=== PATIENT | female | born 1970 | race Caucasian/White ===

== ENCOUNTER 2017-08-30 11:31 | Emergency (ER) | payer BC, OTHER ==
[2017-08-30 12:05] VITALS: BP 132/86
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
[2017-08-30] MEDS ORDERED: Tenofovir/Emtricitab 200/300 * TAB PO ONE ×2 (13:01→13:02)
[2017-08-30] MEDS ORDERED: Raltegravir* 400 MG TAB PO ONE ×3 (13:02→13:23)
[2017-08-30 19:23] LABS: ABS Basophils 0.1 10^3/ul (0-0.2); ABS Eosinophils 0.2 10^3/ul (0-0.6); ABS Lymphocytes 2.1 10^3/ul (1.0-4.8); ABS Monocytes 0.5 10^3/ul (0-0.8); ABS Neutrophils 6.4 10^3/ul (1.5-7.7); ABS Nucleated RBC 0 10^3/ul; Eosinophil % 2.6 % (0-6); Hematocrit 43 % (35-47); Hemoglobin 14.2 g/dl (12.0-16.0); Lymphocyte % 22.6 % (25-47); Mean Corpuscular HGB Conc 33 g/dl (31-36); Mean Corpuscular Hemoglobin 30 pg (27-31); Mean Corpuscular Volume 89 fL (80-97); Nucleated Red Blood Cells % 0.1; Platelet Count 283 10^3/ul (150-450); Red Blood Count 4.78 10^6/ul (4.0-5.4); Red Cell Distribution Width 14 % (10.5-15); White Blood Count 9.3 10^3/ul (3.5-10.8)
[2017-08-30 19:53] LABS: EGFR Non-African American 95.6 (>60)
== END 2017-08-30 13:41 | disposition home or self-care (01) ==
LOC: UCCORT 11:31
DX: S51.051A Open bite, right elbow, initial encounter (principal); Y04.1XXA Assault by human bite, initial encounter; Y93.9 Activity, unspecified; Y92.219 Unspecified school as the place of occurrence of the external cause; Y99.0 Civilian activity done for income or pay; Z20.6 Contact with and (suspected) exposure to human immunodeficiency virus [HIV]; K21.9 Gastro-esophageal reflux disease without esophagitis; F32.9 Major depressive disorder, single episode, unspecified; I10 Essential (primary) hypertension
CPT/HCPCS: 36415; 80053; 85025; 86703; 86706; 86803; 87340; 99213; G0463

== ENCOUNTER 2017-10-27 09:55 | Emergency (ER) | payer OTHER ==
[2017-10-27 10:23] VITALS: BP 134/74
--- NOTE | 2017-10-27 10:32 | UC ---
Lower Extremity/Ankle HPI - HPI Summary HPI Summary: Left lower ankle and foot pain after fall while walking down. No knee or hip pain. No proximal fibula pain. She is not able to bear wt. - History of Current Complaint Chief Complaint: UCLowerExtremity Stated Complaint: LT FOOT INJ Time Seen by Provider: 10/27/17 10:21 Hx Obtained From: Patient Hx Last Menstrual Period: 09/30/17 Onset/Duration: Sudden Onset, Lasting Hours Severity Initially: Severe Severity Currently: Severe Pain Intensity: 9 Aggravating Factor(s): Standing, Ambulation Alleviating Factor(s): Rest Able to Bear Weight: No - Allergies/Home Medications Allergies/Adverse Reactions: Allergies Allergy/AdvReac Type Severity Reaction Status Date / Time No Known Allergies Allergy Verified 10/27/17 10:22 PMH/Surg Hx/FS Hx/Imm Hx Previously Healthy: No - Surgical History Surgical History: Yes Surgery Procedure, Year, and Place: left rotator cuff,Left knee, b/l breast reduction, D&C x 2 , hernia, Right breast lumpectomy. removal of shauna on left arm that showed signs of skin ca. - Family History Known Family History: Positive: None - Social History Lives: With Family Alcohol Use: Occasionally Substance Use Type: None Smoking Status (MU): Never Smoked Tobacco - Immunization History Most Recent Tetanus Shot: less than 5 years Review of Systems Musculoskeletal: Arthralgia All Other Systems Reviewed And Are Negative: Yes Physical Exam Triage Information Reviewed: Yes Appearance: Well-Appearing, No Pain Distress, Obese Vital Signs: Initial Vital Signs Temp 98.4 F 10/27/17 10:15 Pulse 87 10/27/17 10:15 Resp 17 10/27/17 10:15 BP 134/74 10/27/17 10:15 Pulse Ox 100 10/27/17 10:15 Vital Signs Reviewed: Yes Eyes: Positive: Conjunctiva Clear ENT: Positive: Normal ENT inspection Neck: Positive: Supple. Negative: Nuchal Rigidity Respiratory: Positive: No respiratory distress, No accessory muscle use. Negative: Respiratory distress Cardiovascular: Positive: Brisk Capillary Refill Abdomen Description: Positive: Nontender, No Organomegaly, Soft. Negative: Distended, Guarding Musculoskeletal: Positive: Edema @ - diffuse ankle swelling. THere is lateral malleolar tenderness and 5th metatarsal tenderness. Neurological: Positive: Alert, Muscle Tone Normal. Negative: Fatigued Psychological: Positive: Normal Response To Family, Age Appropriate Behavior Skin Exam: Other - lateral ankle bruising. Diagnostics - Radiology No standard instances Xray Interpretation: No Acute Changes - no fx. Radiology Interpretation Completed By: Radiologist Lower Extremity Course/Dx - Course Course Of Treatment: Ernesto wrap. f/u pcp. if not improved, re x ray. - Differential Dx/Diagnosis Provider Diagnoses: ankle sprain. Discharge - Sign-Out/Discharge Documenting (check all that apply): Patient Departure - Discharge Plan Condition: Good Disposition: HOME Prescriptions: Naproxen Sodium [Naproxen ER 500 MG TAB] 500 mg PO BID PRN #20 tbmp.24hr PRN Reason: Pain Patient Education Materials: Ankle Sprain (ED) Referrals: Selena TENORIO,Ean Jiménez [Primary Care Provider] - - Billing Disposition and Condition Condition: GOOD Disposition: Home
--- NOTE | 2017-10-27 10:52 | RAD ---
HISTORY: traumatic left foot pain. COMPARISONS: None VIEWS: 6, Frontal, lateral, and oblique views of the left ankle and left foot FINDINGS: BONE DENSITY: Normal. BONES: There is no displaced fracture. JOINTS: There is no arthropathy. ALIGNMENT: There is no dislocation. SOFT TISSUES: There is circumferential soft tissue swelling of the ankle. OTHER FINDINGS: None. IMPRESSION: SOFT TISSUE SWELLING. NO ACUTE OSSEOUS INJURY TO THE LEFT ANKLE OR LEFT FOOT. IF SYMPTOMS PERSIST, RECOMMEND REPEAT IMAGING.
== END 2017-10-27 11:19 | disposition home or self-care (01) ==
LOC: UCCORT 09:55
DX: S93.402A Sprain of unspecified ligament of left ankle, initial encounter (principal); M79.672 Pain in left foot; W19.XXXA Unspecified fall, initial encounter; Y93.01 Activity, walking, marching and hiking; Y92.9 Unspecified place or not applicable
CPT/HCPCS: 99213; G0463

== ENCOUNTER 2018-09-01 10:37 | Observation (INO) | payer OTHER ==
[2018-09-01] MEDS ORDERED: Clindamycin 900 MG/D5W BAG(*) 900 MG/50 ML BAG IVPB ONE (12:00)
[2018-09-01] MEDS ORDERED: Scopolamine 1.5 mg* PATCH ONE (12:09)
[2018-09-01] MEDS ORDERED: LORazepam TAB(*) 1 MG ONE (12:10)
[2018-09-01] MEDS ORDERED: Naproxen TAB* 250 MG ONE (12:10)
[2018-09-01] MEDS ORDERED: oxyCODONE SR TAB(*) 10 MG TAB.SR ONE (12:10)
[2018-09-01] MEDS ORDERED: Ondansetron INJ* 2 MG/ML VIAL ONE ×2 (12:10→15:07)
[2018-09-01] MEDS ORDERED: Lidocaine 1% INJ* 10 MG/ML 30 ML SDV ONE (13:00)
[2018-09-01] MEDS ORDERED: nitroGLYCERIN DRIP* 25,000 MCG/250 ML BTL ONE (13:01)
[2018-09-01] MEDS ORDERED: Midazolam* 1 MG/ML 5 ML VIAL (5 MG) ONE (13:05)
[2018-09-01] MEDS ORDERED: fentaNYL* 50 MCG/ML 5 ML VIAL (250 MCG VIAL) ONE (13:05)
[2018-09-01] MEDS ORDERED: Iohexol 350 (CONTRAST) 200 ML MDV IV ONE (13:05)
[2018-09-01] MEDS ORDERED: Heparin(*) 1000 UNIT/ML 10 ML VIAL CATH LAB IV ONE (13:06)
[2018-09-01] MEDS ORDERED: VERAPAMIL 2.5 MG/ML 2 ML VIAL ** 5 mg/2 ml ONE (13:06)
[2018-09-01] MEDS ORDERED: Ketorolac INJ* 30 MG/ML 1 ML VIAL ONE ×2 (13:18→14:56)
[2018-09-01] MEDS ORDERED: PROCHLORPERAZINE INJ 5 MG/ML 2 ML VIAL ONE (15:11)
[2018-09-01] MEDS ORDERED: HYDROmorphone PCA* 20 MG/20 ML PCA.SYRING ONE (15:50)
[2018-09-01] MEDS ORDERED: Albuterol HFA INHALER* 8 gm MDI INH PRN (16:47)
[2018-09-01] MEDS ORDERED: hydrALAZINE IV* 20 MG/ML VIAL IV SLOW PU PRN (17:09)
[2018-09-01] MEDS ORDERED: Naloxone* 0.4 MG/ML 1 ML VIAL IV PUSH PRN (17:59)
[2018-09-01] MEDS ORDERED: NS 0.9% 1000 ML** 1,000 ML IVPB SCH (17:59)
[2018-09-01] MEDS ORDERED: HYDROmorphone PCA* 20 MG/20 ML PCA.SYRING PCA SCH (18:00)
[2018-09-01] MEDS ORDERED: PROCHLORPERAZINE INJ 5 MG/ML 2 ML VIAL IV PRN (18:18)
--- NOTE | 2018-09-01 18:27 | HP ---
CC: JONA Vazquez; Dr. Amador Osman * HISTORY AND PHYSICAL: DATE OF ADMISSION: 09/01/18 PRIMARY CARE PROVIDER: JONA Vazquez INTERVENTIONAL RADIOLOGIST: Dr. Amador Osman. ATTENDING PHYSICIAN: Dr. Rafael Gonsalez * (dictated by Ayah Blake NP). REASON FOR VISIT: Uterine fibroid embolization. HISTORY OF PRESENT ILLNESS: Ms. Myers is a 48-year-old female with past medical history of hypertension, GERD, asthma and depression, who presents to [facility] today for an elective uterine fibroid embolization with Dr. Osman. She is a G3, P2, who has been suffering from menorrhagia for approximately 4 months. Her menstrual cycles have always been somewhat irregular, though recently have become much more erratic. She consulted with Dr. Osman and chose to go forward with a uterine fibroid embolization. The patient is now in the PACU. She is lethargic, but wakes for a short time to speak with me. She reports that she is feeling well. She does complain of 7 /10 abdominal pain, which she describes as cramping. She otherwise has no complaints and is unable to answer any further questions due to lethargy. According to the PACU nurse, the patient has been recovering well. Blood pressures have been slightly elevated, though the patient is noted to have a blood pressure cuff on her right forearm. The patient will be transferred to the floor shortly. The hospitalist service was asked to evaluate for admission. PAST MEDICAL HISTORY: 1. Hypertension. 2. GERD. 3. Asthma. 4. Depression. PAST SURGICAL HISTORY: 1. LEEP. 2. Knee and shoulder surgeries. 3. D and C x2. 4. . 5. Hernia repair. 6. Breast reduction. 7. Gastric sleeve. HOME MEDICATIONS: 1. Albuterol MDI 2 puffs q.4 hours p.r.n. shortness of breath, wheezing. 2. Bupropion 75 mg p.o. daily. 3. Diltiazem 120 mg p.o. daily. 4. Benadryl 25 mg p.o. q.4 hours p.r.n. allergy symptoms. 5. Ferrous sulfate 325 mg p.o. daily. 6. Fluoxetine 20 mg p.o. daily. 7. Singulair 10 mg p.o. daily. 8. Nitro 0.4 mg sublingual q.5 minutes p.r.n. chest pain. 9. Omeprazole 40 mg p.o. every other day. ALLERGIES: No known drug allergies. SOCIAL HISTORY: The patient denies any tobacco or recreational drug use. She consumes occasional alcohol. She is and lives at home with her . 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 The patient's , Bryon, would be her surrogate decision maker in the event she is unable to make her own decisions. REVIEW OF SYSTEMS: An 11-point review of systems was attempted, though due to sedation was difficult. All the pertinent positive and negative findings are in the HPI. PHYSICAL EXAMINATION GENERAL: Ms. Myers is a well-developed, well-nourished, obese white woman, lying in bed, in no acute distress. She appears her stated age. VITAL SIGNS: Temp 96.8, heart rate 57, respiratory rate 16, oxygen saturation 98% on 2 L, blood pressure 156/88. HEENT: Head is atraumatic, normocephalic. Extraocular movements are intact. Hearing is grossly intact. Oral mucous membranes are moist. NECK: Thyroid not palpable. Trachea at midline. No lymphadenopathy. RESPIRATORY: Symmetrical chest expansion. No chest wall deformities. Lungs are clear to auscultation throughout. No rhonchi, wheezes, or rales. CARDIOVASCULAR: Regular rate and rhythm. S1, S2 present. No murmurs, rubs, or gallops. No JVD. ABDOMEN: Soft, diffusely tender to light palpation. Bowel sounds normoactive. EXTREMITIES: Skin warm and smooth bilaterally. No edema. No clubbing or cyanosis. Pedal pulses 2+ bilaterally. NEURO: Sedated, though awakens to voice. Moves all extremities. SKIN: Left wrist access site is clean, dry, and intact. DIAGNOSTIC STUDIES/LAB DATA: She did have a BMP on 08/30/18 showing sodium of 139, potassium of 4.6, chloride 106, carbon dioxide 27, BUN 14, creatinine 0.68 , glucose 77. test was negative. ASSESSMENT AND PLAN: Ms. Myers is a 48-year-old female with past medical history of hypertension, gastroesophageal reflux disease, asthma and depression , who presents to [facility] today for an elective uterine fibroid embolization with Dr. Osman. The patient will be admitted to observation for: 1. Uterine fibroid, status post embolization. The patient does continue to complain of pain, though appears to be moderately comfortable in the PACU. She is on a ROTARY ADJUSTER at this point, which will be continued per orders from Dr. Osman. Per his orders, she will also be placed on Toradol and Zofran. Her left radial access site will need to be monitored. She does have Montero in place at this point, which will be removed tonight. I will anticipate that the patient will be discharged tomorrow afternoon if she continues to recover well from the procedure. Other orders such as activity will be under the discretion of Dr. Osman. 2. Hypertension. The patient is hypertensive in the PACU. At this point, systolic pressures are in the 150s. I suspect some of this is a pain response. I will continue her on her diltiazem and I will order p.r.n. hydralazine for a systolic pressure greater than 170. I suspect that as her pain improves her blood pressure will come down, although if it remains elevated tomorrow, we can address that at that point. 3. Gastroesophageal reflux disease. I will continue omeprazole or a formulary alternative. 4. Depression. I will continue bupropion and fluoxetine. 5. Asthma. The patient is not having any respiratory difficulties at this time. I have ordered her albuterol and Singulair that she takes at home. 6. FEN: IV fluids and diet will be per Dr. Osman's written orders. 7. Code status: The patient will be a full code. 8. DVT prophylaxis: According to the DVT Risk Assessment, the patient scores a 2 putting her at moderate risk. I have ordered SCDs. TIME SPENT: Approximately 45 minutes was spent on this admission, greater than half of that time spent with the patient obtaining my history, performing my physical exam, and reviewing the plan of care. This case has been reviewed with my attending, Dr. Gonsalez, who is in agreement with the plan of care. AYAH BLAKE, MANAGER UNDERWRITING [id number]/[facility] #: [id number] SUZANNE
--- NOTE | 2018-09-01 18:46 | PN ---
Progress Note - Progress Note Date of Service: 09/01/18 SOAP: Subjective: "I feel sleepy". Pain controlled at 05/22. Currently no nausea or emesis. Objective: Selected Entries 09/01/18 09/01/18 17:30 17:36 Temperature 97.7 F Temperature Oral Source Pulse Rate 59 Respiratory 16 Rate Blood Pressure 135/76 (mmHg) O2 Sat by Pulse 97 Oximetry Oxygen Flow 2 Rate Sleepy, but arousable to voice. Abdomen is soft, minimally tender to palpation 2+ pulse at left radial artery Dressing with scant dry blood Left hand warm to touch Left hand motor function is grossly intact with normal senior validation engineer strength Sensation intact to light touch Assessment: 48 YOF s/p Uterine Fibroid Arterial Embolization with pain and nausea currently well controlled. Plan: 1. Advance regular diet (ice water, clears, jello, crackers, breakfast in AM) 2. Montero removed at 2000 hours. 3. Compazine PRN added to standard post UFE IR protocol.
[2018-09-01] MEDS: Ondansetron INJ* 2 MG/ML VIAL IV SCH (20:10)
[2018-09-01] MEDS: Ketorolac INJ* 15 MG/ML 1 ML VIAL IV PUSH SCH (20:12)
[2018-09-02] MEDS: Ondansetron INJ* 2 MG/ML VIAL IV SCH ×2 (02:17→07:57)
[2018-09-02] MEDS: Ketorolac INJ* 15 MG/ML 1 ML VIAL IV PUSH SCH ×2 (02:20→07:59)
[2018-09-02] MEDS ORDERED: HYDROcodone/ACETAMIN 5-325 MG* 1 TAB PO PRN (08:51)
[2018-09-02] MEDS ORDERED: Montelukast Sodium TAB* 10 MG PO SCH (09:00)
[2018-09-02] MEDS ORDERED: buPROPion TAB* 75 MG PO SCH (09:00)
[2018-09-02] MEDS ORDERED: FLUoxetine CAP* 20 MG PO SCH (09:00)
[2018-09-02] MEDS ORDERED: Ketorolac TAB * 10 MG TAB PO SCH (09:00)
[2018-09-02] MEDS ORDERED: Ferrous Sulfate TAB* 325 MG PO SCH (09:00)
[2018-09-02] MEDS ORDERED: Diltiazem CD CAP* 120 MG PO SCH (09:00)
[2018-09-02] MEDS ORDERED: Ondansetron TAB* 4 MG PO SCH (09:00)
--- NOTE | 2018-09-02 10:07 | PN ---
Progress Note - Progress Note Date of Service: 09/02/18 SOAP: Subjective: +episode of nausea one hour ago after walking, but resolved now. No emesis. Patient reports pain is 8/10. +void. Has eaten small breakfast of muffin and juice. 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 Patient was encouraged to utilize her OUTSOLE FLEXER more and take PO supplemental Fannin after her IV medications transition to PO. Plan: 1. IV to PO medication transition. 2. Encourage ambulation. 3. Patient meets IR criteria for D/C to home. 4. Outpatient medications will be as follows: Toradol 10 mg PO Q 6 hours x 3 days (Dispense #15 with one refill) AFTER Toradol is complete: Ibuprofen 400 mg PO Q 6 hours OR Naprosyn 225 mg PO Q 8 hours for 3-5 days (do not take both) Fannin 5/325, take 1 or 2 tablets by mouth Q 6 hours PRN breakthrough pain ( Dispense #40) Compazine 5 mg PO Q 6 hours x 5 days (Dispense #30 with one refill) Scopolamine 1.5 mg transdermal to mastoid process. On 09/04/18 at 900 AM, remove current patch, replace with new patch and wear x 3 days. Drink one cup of laxative tea daily (For example, "Smooth Move") for one week.
[2018-09-02 12:19] VITALS: BP 129/73
--- NOTE | 2018-09-03 00:20 | DS ---
CC: JONA Vazquez; Dr. Amador Osman* DISCHARGE SUMMARY: DATE OF ADMISSION: 09/01/18 DATE OF DISCHARGE: 09/02/18 PRIMARY CARE PROVIDER: JONA Vazquez INTERVENTION RADIOLOGIST: Dr. Amador Osman. ATTENDING PHYSICIAN: Rafael Gonsalez MD* (dictated by Ayah Blake NP). PRIMARY DIAGNOSES: 1. Uterine fibroids, status post fibroid embolization. 2. Hypertension. SECONDARY DIAGNOSES: 1. Gastroesophageal reflux disease. 2. Depression. 3. Asthma. HISTORY OF PRESENT ILLNESS AND HOSPITAL COURSE: Ms. Myers is a 48-year-old female with past medical history of hypertension, GERD, asthma, and depression, who presented to [facility] on 09/01/18 for an elective uterine fibroid embolization. Please see the history and physical by myself for a complete summary of the events leading up to this hospitalization. In short, the patient has been suffering from menorrhagia for a number of months and was noted to have fibroids. She consulted with Dr. Osman and elected to proceed with a uterine fibroid embolization. The patient tolerated the procedure well. She was admitted on observation by the hospitalist service. She was noted to be hypertensive in the PACU with systolic pressures up into the 160s. 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 She was moved to the floor and had an unwelcome night. She was continued on pain medications. She did have 1 episode of nausea this morning, although was able to eat a small breakfast. When I saw the patient, she had recently received pain medication and denied any pain. The patient was seen by Dr. Osman this morning to advise that she is stable for discharge. The patient offers no complaints and is anxious to return home. On exam, she has no neurological deficit. Heart has a regular rate and rhythm without murmurs, rubs or gallops. Lungs are clear to auscultation without rhonchi, wheezes, or rales. There is no edema. She has a left radial access sight, which is clean, dry, and intact with a Tegaderm in place. Circulation, movement, and sensation are intact to the left hand. Ms. Myers is stable for discharge today. Vital signs are as follows: Temp 98.8, heart rate 66, respiratory rate 17, oxygen saturation 93% on room air, blood pressure 129/73. DISCHARGE MEDICATIONS: New medications: 1. Hydrocodone/acetaminophen 5/325 mg 1 to 2 tabs p.o. q.6 hours p.r.n. breakthrough pain. 2. Ibuprofen 400 mg p.o. q.6 hours for 3 to 5 days OR naproxen 225 mg p.o. q.8 hours for 3 to 5 days. 3. Toradol 10 mg p.o. q. 6 hours x3 days. 4. Compazine 5 mg p.o. q. 6 hours x5 days. 5. Scopolamine patch 1.5 mg 1 patch transdermal every 72 hours. Replace current patch on 09/04/18. Continued medications: 1. Albuterol MDI 2 puffs q.4 hours p.r.n. shortness of breath. 2. Bupropion 75 mg p.o. daily. 3. Diltiazem 120 mg p.o. daily. 4. Benadryl 25 mg p.o. q.4 hours p.r.n. allergy symptoms. 5. Ferrous sulfate 325 mg p.o. daily. 6. Fluoxetine 20 mg p.o. daily. 7. Singulair 10 mg p.o. daily. 8. Omeprazole 40 mg p.o. every other day. DISCHARGE PLAN: Ms. Myers will be discharged home. Activity will be as tolerated. She has been given specific activity instruction from Dr. Osman: Avoid tubs and swimming for 1 week, avoid strenuous exercise for 1-week, pelvic rest for 4 weeks. Medications are noted above. The patient has been prescribed Toradol to take every 6 hours for 3 days. After the 3 days on Toradol, she can start either ibuprofen or naproxen. She has been advised to not take Toradol, ibuprofen or naproxen together. She can take ibuprofen or naproxen for 3 to 5 days. She may also take Derwood for breakthrough pain. She has been prescribed Compazine for nausea and a scopolamine patch. She currently have a patch in place and will need to replace that one on 09/04/18. The patient should follow up with her primary care provider in 4 to 7 days and also with Dr. Osman in approximately 6 weeks. The patient has been given specific instructions about when to return to the hospital: Foul smelling vaginal discharge, fevers, chills, pelvic pain, uncontrolled bleeding from the access site, or persistent heavy vaginal bleeding. She should otherwise return to the emergency room or nearest hospital for any worsening of symptoms, shortness of breath, lightheadedness, dizziness, chest discomfort, high fevers, chills, night sweats, loss of consciousness, or any other worrisome signs or symptoms. DISCHARGE CONDITION: Stable. DISCHARGE DISPOSITION: Home. This is a summarized report of a complex medical history and hospital stay. For further details, please see the entire medical record. TIME SPENT: Approximately 45 minutes was spent on this discharge. AYAH BLAKE, POWER SEWING MACHINE OPERATOR [id number]/[facility] #: [id number] SUZANNE
[2018-09-03] MEDS ORDERED: Pantoprazole TAB * 40 MG TAB PO SCH (09:00)
== END 2018-09-02 13:10 | disposition home or self-care (01) ==
LOC: CHICATH 10:37 → SSU 17:32
PROVIDERS: ADMIT Internal Medicine; ATTEND Internal Medicine
DX: N92.4 Excessive bleeding in the premenopausal period (principal); D25.9 Leiomyoma of uterus, unspecified; I10 Essential (primary) hypertension; K21.9 Gastro-esophageal reflux disease without esophagitis; F32.9 Major depressive disorder, single episode, unspecified; J45.909 Unspecified asthma, uncomplicated; R10.32 Left lower quadrant pain
CPT/HCPCS: 36415; 37243; 75736; 76937; 84702; 96374; 96375; 99156; 99157; A9270-GY; C1769; C1884; C1887; G0378; J0780; J1170; J1644; J1885; J2250; J2405; J3010

== ENCOUNTER 2023-08-26 05:36 | Observation (INO) ==
[~2023-08-26 05:36] MED LIST: NS 0.45% 1000 ml BAG 1,000 ML IV SCH; Naloxone 0.4 mg VIAL 0.4 mg/ml 1 ml VIAL IV PRN; Ondansetron 4 mg VIAL 2 MG/ML 2 ml VIAL IV PRN
[2023-08-26] MEDS ORDERED: ceFAZolin 2 GM in NS PREMIX 2 GM/100 ML BAG IVPB ONE (06:19)
[2023-08-26] MEDS ORDERED: Tranexamic Acid 1 GM/100ML BAG 2,000 MG/200 ML BAG IV ONE (06:19)
[2023-08-26 06:27] LABS: Rapid COVID-19 Molecular Undetected (Undetected)
[2023-08-26] MEDS ORDERED: Famotidine IV 10 MG/ML 2 ml VIAL (20 mg) ONE (06:43)
[2023-08-26] MEDS: Famotidine IV 10 MG/ML 2 ml VIAL (20 mg) IV ONE (06:46)
[2023-08-26] MEDS ORDERED: fentaNYL 100 mcg/2 ml 50 MCG/ML VIAL ONE ×3 (07:03→10:37)
[2023-08-26] MEDS ORDERED: ROPIVACAINE 5 MG/ML 30 ML BTL (0.5%) ONE ×2 (07:03→07:10)
[2023-08-26] MEDS ORDERED: Midazolam 5 mg/5 ml VIAL 1 mg/ml 5 ml VIAL (5 mg) ONE (07:03)
[2023-08-26] MEDS ORDERED: Scopolamine 1 mg/72hr PATCH ONE (07:05)
[2023-08-26] MEDS ORDERED: Propofol 10 MG/ML 20 ML BTL ONE ×2 (07:10→09:56)
[2023-08-26] MEDS ORDERED: Lidocaine 2% PF 5 ML VIAL ONE (07:10)
[2023-08-26] MEDS ORDERED: Midazolam 2 mg/2 ml VIAL 1 mg/ml 2 ml VIAL (2 mg) ONE (07:11)
[2023-08-26] MEDS ORDERED: Ondansetron 4 mg VIAL 2 MG/ML 2 ml VIAL ONE (08:30)
[2023-08-26] MEDS ORDERED: Phenylephrine IV 10 MG/ML 1 ml VIAL ONE (09:44)
[2023-08-26] MEDS ORDERED: Ondansetron ODT 4 mg TAB 4 MG TAB PO PRN (10:18)
[2023-08-26] MEDS ORDERED: Lactulose 30 ml UDC PO PRN (10:18)
[2023-08-26] MEDS: Acetaminophen IV 1 GM/100ML 1,000 MG/100 ML BAG IV ONE (10:18)
[2023-08-26] MEDS: Buffered Lidocaine 1% SYRIN 1 ml INTRADERM ONE ×2 (10:18→10:19)
[2023-08-26] MEDS ORDERED: Magnesium Hydroxide LIQ 30 ML UDC PO PRN (10:18)
[2023-08-26] MEDS ORDERED: Ondansetron 4 mg VIAL 2 MG/ML 2 ml VIAL IV PRN (10:18)
[2023-08-26] MEDS ORDERED: Calcium Carb (TUMS) 500 mg CHEW TAB PO PRN (10:18)
[2023-08-26] MEDS: Lactated Ringers 1000 ml BAG 1,000 ML IV SCH ×2 (10:18→14:46)
[2023-08-26] MEDS: Scopolamine 1 mg/72hr PATCH TRANSDERM ONE (10:19)
[2023-08-26] MEDS: fentaNYL 100 mcg/2 ml 50 MCG/ML VIAL IV PRN (10:40)
[2023-08-26] MEDS ORDERED: Morphine 2 MG/ML SYRINGE ONE (14:58)
[2023-08-26] MEDS: Morphine 2 MG/ML SYRINGE IV PRN (15:12)
[2023-08-26] MEDS: ceFAZolin 2 GM in NS PREMIX 2 GM/100 ML BAG IVPB SCH (16:54)
[2023-08-26] MEDS ORDERED: Albuterol HFA INHALER 8 gm MDI INH PRN (18:21)
[2023-08-26] MEDS: Magnesium Hydroxide LIQ 30 ML UDC PO SCH (20:41)
[2023-08-27 06:22] LABS: Hematocrit 38.8 % (35-45); Hemoglobin 13.3 g/dL (11.5-14.3); Mean Platelet Volume 10.4 fL (7.5-11.2); Platelet Count 228 10^3/uL (150-450)
[2023-08-27 07:09] LABS: Calcium 8.8 mg/dL (8.6-10.3); Creatinine, Serum 0.55 mg/dL (0.51-0.95); eGFR CKD-EPI 108.9 (>60)
[2023-08-27] MEDS: Vitamin THERAPEUTIC TAB PO SCH (08:33)
[2023-08-27 13:53] VITALS: BP 139/78
== END 2023-08-27 18:50 | disposition home or self-care (01) ==
LOC: SSU 05:36 → OR 05:36
PROVIDERS: ADMIT Orthopaedic Surgery Adult Reconstructive Orthopaedic Surgery; ATTEND Orthopaedic Surgery Adult Reconstructive Orthopaedic Surgery